=== PATIENT | male | born 1965 | race Asian ===

== ENCOUNTER 2016-12-10 11:05 | Emergency (ER) | payer OTHER ==
[~2016-12-10] VITALS: Ht 175.3 cm; Wt 90.7 kg
== END 2016-12-10 11:57 | disposition home or self-care (01) ==
LOC: ED 11:05
PROC: 0HQFXZZ Repair Right Hand Skin, External Approach (ICD-10-PCS; principal; 2016-12-10)
DX: S61.011A Laceration without foreign body of right thumb without damage to nail, initial encounter (principal); W45.8XXA Other foreign body or object entering through skin, initial encounter; Y92.098 Other place in other non-institutional residence as the place of occurrence of the external cause
CPT/HCPCS: 90471; 90715; 99282

== ENCOUNTER 2018-03-29 19:16 | Emergency (ER) | payer OTHER ==
[~2018-03-29] VITALS: Ht 175.3 cm; Wt 83.9 kg
[2018-03-29 19:32] VITALS: TEMP 98.2
[2018-03-29 20:52] VITALS: BP 155/97
== END 2018-03-29 20:53 | disposition home or self-care (01) ==
LOC: ED 19:16
DX: T15.01XA Foreign body in cornea, right eye, initial encounter (principal); X58.XXXA Exposure to other specified factors, initial encounter
CPT/HCPCS: 99283